=== PATIENT | male | born 1975 | race Caucasian/White ===

== ENCOUNTER 2018-03-18 07:07 | Day surgery (SDC) | payer OTHER ==
[~2018-03-18] VITALS: Ht 200.7 cm; Wt 133.5 kg
[~2018-03-18 07:07] MED LIST: HYDACE5 PO; NEOPOLHYDS OT; SERT100 PO; SERT50
[2018-03-18] MEDS ORDERED: METO25ER (07:57)
[2018-03-18] MEDS ORDERED: LORA.5 (07:58)
[2018-03-18] MEDS ORDERED: TESTONE CI200 MG/1 M (07:59)
--- NOTE | 2018-03-18 10:19 | NUR ---
03/18/18 1019 Megan Saba PT IS RESTING IN RECLINER, WITH HIS AT HIS SIDE, THEY ARE TALKING AND LAUGHTING. HE IS DRINKING A COFFEE THAT HIS BROUGHT HIM. HE DECLINED A WARM BLANKET, HE WAS MEDICATED FOR PAIN PER ORDERS (SEE VS FOR DOSE AND TIMES). CALL LIGHT IN REACH.
== END 2018-03-18 11:12 | disposition home or self-care (01) ==
LOC: ORSCSDS 07:07
PROVIDERS: Orthopaedic Surgery
PROC: 0LM30ZZ Reattachment of Right Upper Arm Tendon, Open Approach (ICD-10-PCS; principal; 2018-03-18 08:20)
DX: S46.211A Strain of muscle, fascia and tendon of other parts of biceps, right arm, initial encounter (principal); I10 Essential (primary) hypertension; G47.33 Obstructive sleep apnea (adult) (pediatric); Z79.899 Other long term (current) drug therapy
CPT/HCPCS: C1713; J0690; J1100; J1885; J2250; J2405; J2795; J3010; J7120

== ENCOUNTER 2023-03-11 07:29 | Day surgery (SDC) | payer OTHER ==
[~2023-03-11] VITALS: Ht 200.7 cm; Wt 136.2 kg
[2023-03-11] VITALS (14 sets, daily range): BP systolic 95–139; BP diastolic 48–87
[~2023-03-11 07:29] MED LIST changes: +LORA.5; +LOSARTAN-HCTZ1 EACH PO; +METO25ER; +ROPI1 PO; +TESTONE CI200 MG/1 M
[2023-03-11] MEDS ORDERED: ASPI81CH PO (07:48)
--- NOTE | 2023-03-11 08:23 | NUR ---
03/11/23 0822 Tressa Prieto HISTORY, CHART, MEDICATIONS AND ALLERGIES REVIEWED BEFORE START OF PROCEDURE. PATIENT CONFIRMS NPO STATUS AND AGREES WITH SCHEDULED PROCEDURE. 3-LEAD EKG REVIEWED WITH PHYSICIAN PRIOR TO START OF PROCEDURE. MONITOR INTACT WITH CONTINUOUS PULSE OXIMETRY,CAPNOGRAPHY, 3-LEAD EKG, INTERMITTENT BP. SUPPLEMENTAL O2 TO BE TITRATED THROUGHOUT PROCEDURE TO MAINTAIN O2 SATURATION ABOVE 90%. PATIENT DETERMINED TO BE ASA APPROPRIATE FOR PROPOFOL SEDATION PRIOR TO START OF PROCEDURE BY DR. RITCHIE
--- NOTE | 2023-03-11 09:30 | NUR ---
Patient up to Ambulate independently. Gait steady. Discharge instructions reviewed with patient. Patient verbalizes understanding. Copy given to patient to take home. Patient States Post-Procedure ride home has been arranged. PT DID NOT WANT WC RIDE OUT TO CAR SO I WALKED WITH PT OUT TO RIDE, PT WAS STEADY AND DENIES ANY PAIN OR NAUSEA
== END 2023-03-11 22:55 | disposition home or self-care (01) ==
LOC: ORSCMMR 07:29 → ORD 08:30 → ORSCMMR 22:55
PROVIDERS: Internal Medicine Gastroenterology
PROC: 0DJD8ZZ Inspection of Lower Intestinal Tract, Via Natural or Artificial Opening Endoscopic (ICD-10-PCS; principal; 2023-03-11 08:30)
DX: Z12.11 Encounter for screening for malignant neoplasm of colon (principal); R19.5 Other fecal abnormalities; K57.30 Diverticulosis of large intestine without perforation or abscess without bleeding; I10 Essential (primary) hypertension; F32.A Depression, unspecified; Z79.899 Other long term (current) drug therapy
CPT/HCPCS: J2250; J2704; J7120